=== PATIENT | female | born 1995 | race Caucasian/White ===

== ENCOUNTER 2017-06-01 12:32 | Emergency (ER) | payer OTHER ==
[~2017-06-01] VITALS: Ht 165.1 cm; Wt 52.2 kg
[~2017-06-01 12:32] MED LIST: BACTRIM DS TAB1 EACH PO
[2017-06-01] MEDS ORDERED: NORCO 5-325 TA1 EACH PO (14:29)
[2017-06-01] MEDS ORDERED: IBUPROFEN 800800 MG PO (14:29)
[2017-06-01 14:39] VITALS: BP 125/82
== END 2017-06-01 14:40 | disposition home or self-care (01) ==
LOC: M.ERS 12:32
DX: N75.0 Cyst of Bartholin's gland (principal)

== ENCOUNTER 2017-06-02 13:53 | Emergency (ER) | payer OTHER ==
[~2017-06-02] VITALS: Ht 165.1 cm; Wt 52.2 kg
[~2017-06-02 13:53] MED LIST changes: +IBUPROFEN 800800 MG PO; +NORCO 5-325 TA1 EACH PO
[2017-06-02 15:05] VITALS: BP 109/76
== END 2017-06-02 15:05 | disposition home or self-care (01) ==
LOC: M.ERS 13:53
DX: Z48.00 Encounter for change or removal of nonsurgical wound dressing (principal)

== ENCOUNTER 2017-07-27 10:45 | Emergency (ER) | payer OTHER ==
[~2017-07-27] VITALS: Ht 165.1 cm; Wt 51.3 kg
[2017-07-27] MEDS ORDERED: HYDROCODONE-AP1 EAC6 PO (12:04)
[2017-07-27] MEDS ORDERED: DOXYCYCLINE MO100 M1 PO (12:04)
[2017-07-27 12:33] LABS: URINE BILIRUBIN NEGATIVE (Negative); URINE BLOOD TRACE (Negative); URINE CLARITY CLEAR; URINE COLOR YELLOW; URINE GLUCOSE-RANDOM NEGATIVE (Negative); URINE KETONES NEGATIVE (Negative); URINE LEUKOCYTES-REFLEX NEGATIVE (Negative); URINE NITRITE-REFLEX NEGATIVE (Negative); URINE PROTEIN NEGATIVE (Negative); URINE SPECIFIC GRAVITY 1.015 (1.005-1.030); URINE UROBILINOGEN 0.2 E.U./dl (0.2-1.0)
[2017-07-27 12:39] VITALS: BP 127/79
== END 2017-07-27 12:41 | disposition home or self-care (01) ==
LOC: M.ERS 10:45
PROVIDERS: Physician Assistant
DX: N75.1 Abscess of Bartholin's gland (principal); F17.200 Nicotine dependence, unspecified, uncomplicated

== ENCOUNTER 2018-06-14 12:19 | Emergency (ER) | payer OTHER ==
[~2018-06-14] VITALS: Ht 165.1 cm; Wt 49.9 kg
[~2018-06-14 12:19] MED LIST changes: +DOXYCYCLINE MO100 M1 PO; +HYDROCODONE-AP1 EAC6 PO
[2018-06-14 13:13] LABS: ABSOLUTE BASOPHILS 0.1 thou/uL (0.0-0.2); ABSOLUTE EOSINOPHILS 0.2 thou/uL (0.0-0.7); ABSOLUTE LYMPHOCYTES 1.1 thou/uL (0.8-5.3); ABSOLUTE MONOCYTES 0.6 thou/uL (0.0-1.2); ABSOLUTE NEUTROPHILS 6.1 thou/uL (1.6-8.1); BASOPHILS 0.8 %; EOSINOPHILS 2.2 %; HEMATOCRIT 41.2 % (37.0-47.0); HEMOGLOBIN 13.8 gm/dL (12.0-15.0); LYMPHOCYTES 13.8 %; MCH 31.1 pg (26.0-34.0); MCHC 33.5 g/dL (28.0-37.0); MCV 92.7 fL (80.0-100.0); MONOCYTES 7.4 %; MPV 7.9 fl. (7.2-11.1); NUCLEATED RBCS 0 /100WBC; PLATELET COUNT* 264 thou/uL (150-400); POLYS 75.8 %; RBC 4.44 mil/uL (4.20-5.00); RDW-CV 14.4 % (10.5-14.5); WBC 8.1 thou/uL (4.0-11.0)
[2018-06-14 13:22] LABS: CALCIUM 9.1 mg/dL (8.5-10.1); CREATININE 0.6 mg/dL (0.6-1.3); POTASSIUM 3.4 mmol/L (3.5-5.1)
[2018-06-14 13:25] LABS: ALBUMIN 4.9 g/dL (3.4-5.0); TOTAL BILIRUBIN 0.4 mg/dL (<0.1-1.0); TOTAL PROTEIN 8.5 g/dL (6.4-8.2)
[2018-06-14 14:09] LABS: URINE BLOOD 2+ (Negative); URINE COLOR YELLOW; URINE GLUCOSE-RANDOM NEGATIVE (Negative); URINE KETONES 1+ (Negative); URINE LEUKOCYTES-REFLEX NEGATIVE (Negative); URINE NITRITE-REFLEX NEGATIVE (Negative); URINE PROTEIN TRACE (Negative); URINE SPECIFIC GRAVITY >= 1.030 (1.005-1.030); URINE UROBILINOGEN 0.2 E.U./dl (0.2-1.0)
[2018-06-14 14:11] LABS: ICTOTEST (BILI CONFIRMATORY) Negative (Negative); URINE BILIRUBIN 1+ (Negative); URINE CLARITY HAZY
[2018-06-14 14:19] LABS: BACTERIA-REFLEX 1-9 Few /HPF (None Seen); CASTS None Seen /LPF (None Seen); CRYSTALS None Seen /LPF (None Seen); MUCUS >6 Heavy strn/LPF (None Seen); SQUAMOUS >10 Many /LPF (0-3); URINE RBC 0-2 Rare /HPF (0-2); URINE WBC-REFLEX 0-5 Rare /HPF (0-5)
[2018-06-14] MEDS ORDERED: ONDANSETRON HCL4 M2 PO (14:23)
[2018-06-14 14:35] VITALS: BP 114/58
--- NOTE | 2018-06-15 10:22 | EKG ---
[place] [address] ELECTROCARDIOGRAM REPORT Name: JOCE NICHOLAS Room: [facility]#: [id number] Admission: 06/14/18 Attend Phys: Discharge: 06/14/18 Date of : [birth year] Report #: [id number] THIS REPORT FOR: //name// [facility] ED Test Date: 2018-06-14 Test Time: 13:22:39 Pat Name: JOCE NICHOLAS Department: Room: Gender: F [employer] Program Director: Carlie [place] : 1995 Requested By: Monica Schaefer Order Number: [id number] MD: Long Parsih Measurements Intervals [address] Rate: 95 P: 57 VT: 113 QRS: 44 QRSD: 82 T: 6 QT: 328 QTc: 413 Interpretive Statements Sinus rhythm Borderline short VT interval RSR' in V1 or V2, probably normal variant No previous ECG available for comparison Electronically Signed On 06-15-2018 10:22:24 FRAME [employer]IL[employer] by Long Parish [email or web address] <ELECTRONICALLY SIGNED> By: Long Parish MD, [facility] 06/15/18 1022 D: [id number] Long Parish MD, FACC /EPI
== END 2018-06-14 14:35 | disposition home or self-care (01) ==
LOC: M.ERS 12:19
PROVIDERS: Physician Assistant
DX: R11.2 Nausea with vomiting, unspecified (principal); R00.2 Palpitations

== ENCOUNTER 2020-02-13 02:39 | Emergency (ER) | payer OTHER ==
[~2020-02-13] VITALS: Ht 165.1 cm; Wt 57.6 kg
[~2020-02-13 02:39] MED LIST changes: +ONDANSETRON HCL4 M2 PO
[2020-02-13] MEDS ORDERED: AUGMENTIN 875-1 EACH PO (04:01)
[2020-02-13 04:06] VITALS: BP 122/62
== END 2020-02-13 04:06 | disposition home or self-care (01) ==
LOC: M.ERS 02:39
DX: S51.811A Laceration without foreign body of right forearm, initial encounter (principal); F17.210 Nicotine dependence, cigarettes, uncomplicated; W54.0XXA Bitten by dog, initial encounter; Y93.89 Activity, other specified; Y92.89 Other specified places as the place of occurrence of the external cause; Y99.8 Other external cause status